=== PATIENT | female | born 1980 | race Caucasian/White ===

== ENCOUNTER 2017-08-24 05:45 | Inpatient (IN) | payer OTHER ==
[~2017-08-24] VITALS: Ht 162.6 cm; Wt 62.1 kg
[~2017-08-24 05:45] MED LIST: OBSTETRIX DHA1 EACH
[2017-08-27] MEDS ORDERED: NAPR500T14 PO (09:47)
[2017-08-27] MEDS ORDERED: OXYC1TAB9 PO (09:47)
[2017-08-27] MEDS ORDERED: PREPLUS CA-FE1 EACH PO (09:47)
== END 2017-08-27 10:37 | DRG 766 ==
LOC: LDR 05:45 → OB/GYN 17:43
PROVIDERS: Specialist
PROC: 10907ZC Drainage of Amniotic Fluid, Therapeutic from Products of Conception, Via Natural or Artificial Opening (ICD-10-PCS; 2017-08-24)
PROC: 3E0P7VZ Introduction of Hormone into Female Reproductive, Via Natural or Artificial Opening (ICD-10-PCS; 2017-08-24)
PROC: 3E033VJ Introduction of Other Hormone into Peripheral Vein, Percutaneous Approach (ICD-10-PCS; 2017-08-24)
PROC: 4A033R1 Measurement of Arterial Saturation, Peripheral, Percutaneous Approach (ICD-10-PCS; 2017-08-24)
PROC: 4A1HXCZ Monitoring of Products of Conception, Cardiac Rate, External Approach (ICD-10-PCS; 2017-08-24)
PROC: 10D00Z1 Extraction of Products of Conception, Low, Open Approach (ICD-10-PCS; principal; 2017-08-24 14:00)
DX: O61.0 Failed medical induction of labor (principal); O69.81X0 Labor and delivery complicated by cord around neck, without compression, not applicable or unspecified; Z3A.40 40 weeks gestation of pregnancy; Z37.0 Single live birth; O09.513 Supervision of elderly primigravida, third trimester

== ENCOUNTER 2022-07-30 11:01 | Emergency (ER) | payer OTHER ==
[~2022-07-30] VITALS: Ht 165.1 cm; Wt 50.3 kg
[~2022-07-30 11:01] MED LIST changes: +NAPR500T14 PO; +OXYC1TAB9 PO; +PREPLUS CA-FE1 EACH PO
== END 2022-07-30 16:57 | disposition home or self-care (01) ==
LOC: ER 11:01
DX: K52.9 Noninfective gastroenteritis and colitis, unspecified (principal); R11.10 Vomiting, unspecified; Z88.0 Allergy status to penicillin